=== PATIENT | female | born 2000 | race Caucasian/White ===

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

== ENCOUNTER 2018-02-26 13:54 | Emergency (ER) | payer OTHER ==
[~2018-02-26] VITALS: Ht 167.6 cm; Wt 86.2 kg
[2018-02-26 14:20] LABS: BILIRUBIN NEGATIVE (NEGATIVE); BLOOD NEGATIVE (NEGATIVE); CLARITY SL CLOUDY (CLEAR); COLOR YELLOW (YELLOW); GLUCOSE NEGATIVE (NEGATIVE); KETONE NEGATIVE (NEGATIVE); LEUKO ESTERASE 2+ (NEGATIVE); NITRITE NEGATIVE (NEGATIVE); SPECIFIC GRAVITY 1.025 (1.005-1.030); UROBILINOGEN 0.2 E.U./dl (0.2-1.0)
[2018-02-26 14:35] LABS: WBC 16-20 wbc/hpf (0-5)
[2018-02-26 14:36] LABS: BACTERIA 1+
[2018-02-26 14:49] LABS: BASO % 0.3 % (0.0-1.0); EOS # 0.1 10*3/uL (0.0-0.4); EOS % 0.7 % (1.0-4.0); HEMOGLOBIN 12.4 g/dl (12.0-16.0); LYMPH # 1.5 10*3/uL (1.3-4.4); LYMPH % 20.7 % (27.0-41.0); MEAN CORPUSCULAR HGB 28.8 pg (27.0-31.0); MEAN CORPUSCULAR HGB CONC 33.5 g/dl (33.0-37.0); MEAN PLATELET VOLUME 8.5 fl (9.6-12.3); MONO # 0.5 10*3/uL (0.1-1.0); MONO % 6.3 % (3.0-9.0); NEUT # 5.1 10*3/uL (2.3-7.9); NEUT % 71.7 % (47.0-73.0); PLATELET COUNT AUTOMATED 324 10*3/uL (130-400); RED CELL DISTRI WIDTH 12.9 % (0-14.5); WHITE BLOOD COUNT 7.1 10*3/uL (4.8-10.8)
[2018-02-26 15:01] LABS: INTERNATIONAL NORM RATIO 0.9 (2.0-3.5)
[2018-02-26 15:08] LABS: ALBUMIN 3.3 gm/dl (3.1-4.5); ALKALINE PHOSPHATASE 75 U/L (45-117); BUN 12 mg/dl (7-24); CHLORIDE 106 mmol/L (98-107); CREATININE 0.73 mg/dL (0.55-1.02); LIPASE 112 U/L (73-393); POTASSIUM 3.9 mmol/L (3.5-5.1); SGOT/AST 16 IU/L (3-35); SGPT/ALT 29 U/L (12-78); SODIUM 141 mmol/L (136-145); TOTAL PROTEIN 7.8 gm/dL (6.4-8.2)
[2018-02-26 15:10] LABS: TROPONIN I < 0.015 ng/ml (<0.045)
[2018-02-26 18:15] VITALS: BP 115/65
== END 2018-02-26 18:30 | disposition left against medical advice (07) ==
LOC: ED 13:54
PROVIDERS: Physician Assistant
DX: R07.9 Chest pain, unspecified (principal); K30 Functional dyspepsia; R11.10 Vomiting, unspecified; Z90.49 Acquired absence of other specified parts of digestive tract

== ENCOUNTER 2018-04-16 13:46 | Emergency (ER) | payer OTHER ==
[~2018-04-16] VITALS: Ht 167.6 cm; Wt 90.7 kg
[2018-04-16 13:47] VITALS: BP 105/72
[2018-04-16 14:13] LABS: BILIRUBIN 2+ (NEGATIVE); BLOOD TRACE-INTACT (NEGATIVE); CLARITY SL CLOUDY (CLEAR); COLOR YELLOW (YELLOW); GLUCOSE NEGATIVE (NEGATIVE); KETONE TRACE (NEGATIVE); LEUKO ESTERASE 2+ (NEGATIVE); NITRITE NEGATIVE (NEGATIVE); PH 6.5 (5.0-9.0)
[2018-04-16 14:15] LABS: BASO % 0.3 % (0.0-1.0); EOS % 0.5 % (1.0-4.0); HEMATOCRIT 40.2 % (37.0-47.0); HEMOGLOBIN 13.3 g/dl (12.0-16.0); LYMPH # 1.4 10*3/uL (1.3-4.4); LYMPH % 17.6 % (27.0-41.0); MEAN CELL VOLUME 86.6 fl (81.0-99.0); MEAN CORPUSCULAR HGB 28.7 pg (27.0-31.0); MEAN CORPUSCULAR HGB CONC 33.1 g/dl (33.0-37.0); MEAN PLATELET VOLUME 8.8 fl (9.6-12.3); MONO # 0.4 10*3/uL (0.1-1.0); MONO % 5.2 % (3.0-9.0); NEUT % 76.1 % (47.0-73.0); PLATELET COUNT AUTOMATED 338 10*3/uL (130-400); RED BLOOD COUNT 4.64 10*6/uL (4.10-5.10); RED CELL DISTRI WIDTH 13.2 % (0-14.5); WHITE BLOOD COUNT 7.8 10*3/uL (4.8-10.8)
[2018-04-16 14:27] LABS: ALBUMIN 3.3 gm/dl (3.1-4.5); ALKALINE PHOSPHATASE 116 U/L (45-117); BUN 11 mg/dl (7-24); CHLORIDE 103 mmol/L (98-107); CREATININE 0.83 mg/dL (0.55-1.02); LIPASE 104 U/L (73-393); POTASSIUM 3.9 mmol/L (3.5-5.1); SGOT/AST 282 IU/L (3-35); SGPT/ALT 135 U/L (12-78); SODIUM 137 mmol/L (136-145); TOTAL PROTEIN 7.9 gm/dL (6.4-8.2)
[2018-04-16 14:33] LABS: BACTERIA 1+
[2018-04-16 14:34] LABS: MUCOUS 2+
[2018-04-16] MEDS ORDERED: MACROBID100 M1 PO (15:52)
[2018-04-16] MEDS ORDERED: FLAGYL500 MG PO (15:52)
[2018-04-25] MEDS ORDERED: PERCOCET 5-3251 EACH PO (11:35)
[2018-05-15] MEDS ORDERED: TRAMADOL HCL50 MG PO (12:59)
[2018-05-15] MEDS ORDERED: HYOSCYAMINE0.125 MG PO (13:00)
[2018-05-15] MEDS ORDERED: OMEPRAZOLE20 M2 PO (13:02)
== END 2018-04-16 15:54 | disposition home or self-care (01) ==
LOC: ED 13:46
PROVIDERS: Nurse Practitioner Family
DX: A59.8 Trichomoniasis of other sites (principal); N39.0 Urinary tract infection, site not specified; Z90.49 Acquired absence of other specified parts of digestive tract

== ENCOUNTER 2018-04-18 23:37 | Inpatient (IN) | payer OTHER ==
[~2018-04-18] VITALS: Ht 167.6 cm; Wt 108.1 kg
--- NOTE | ~2018-04-18 | CON ---
[place], [place] REPORT OF CONSULTATION NAME: JANETTE BALDERRAMA UNIT #: [id number] ROOM: 517 DOCTOR: LANA SOLIS MD BIRTHDATE: [birth year] DOS: 04/19/2018 GASTROENDOSCOPIC CONSULTATION REPORT HISTORY OF PRESENT ILLNESS: This is a 18-year-old morbidly obese patient who has presented with chief complaint of abdominal pain. Apparently, she has had multiple visits to Emergency Room. She was sent home with antibiotic and she returns again because of abdominal pain. She had a CBC done. White blood cell was 7.8, H and H of 13 and 40, differential within normal limits. Urinalysis was mildly active, 1+ bacteria. Comprehensive metabolic panel, GFR greater than 60. Liver function test, minimal elevation of SGOT, SGPT at 280+ and 130+, normal alkaline phosphatase, normal bilirubin. She has lipase 104. Chest x-ray was normal, clear lungs. Urine cultures were normal. Monospot negative. CT scan of the abdomen has been done, choledocholithiasis could not be ruled out. She is status post cholecystectomy. Her lipase was greater than 18,000 plus. MRI of the abdomen shows intrahepatic and extrahepatic ductal dilation to 1.3 cm and no obvious calculi identified, acute pancreatitis was confirmed radiologically again. PAST MEDICAL HISTORY: Associated with recurrent pancreatitis and otherwise unremarkable. PAST SURGICAL HISTORY: Associated with broken femur, status post T and A, and status post cholecystectomy 2 years ago. This was done in [place]. SOCIAL HISTORY: Nonsmoker, nonalcohol consumer. FAMILY HISTORY: Noncontributory. ALLERGIES: Allergies to no known medications. MEDICATIONS: At home, anti- pills. REVIEW OF SYSTEMS: HEENT: Denies double vision or blurred vision. RESPIRATORY: Admits to shortness of breath. CARDIOVASCULAR: Denies chest pain. DIGESTIVE SYSTEM: Dyspepsia. PHYSICAL EXAMINATION: GENERAL: Obese patient with gesture of pain in bed, positioned in right lateral. HEENT: Head normocephalic, nontraumatic. Eyes, pupils round, reactive. Sclerae nonicteric. Conjunctivae pink. Mouth and buccal mucosa benign. NECK: Supple. No thyromegaly, no cervical lymphadenopathy. CHEST: Symmetric anatomy, equal expansion. No wheeze, no rhonchi. HEART: Normal sinus rhythm, no gallop, no murmur. ABDOMEN: Obese, soft. No hepato-organomegaly. Tender across the abdomen. Bowel sounds present. No Spence Deal's sign, no Joppa's sign. EXTREMITIES: No cyanosis, no pedal edema. [place], [place] REPORT OF CONSULTATION NAME: JANETTE BALDERRAMA UNIT #: [id number] ROOM: [facility] DOCTOR: LANA SOLIS MD BIRTHDATE: [birth year] NEUROLOGIC: Fully alert, oriented to time, place, person. Sensory, motor intact. Cranial nerves 2-12 intact. IMPRESSION: Recurrent pancreatitis with presence of calcification in the head of the pancreas, dilation of intrahepatic and extrahepatic ducts, status post cholecystectomy could be partially physiologic, post-cholecystectomy and could be having synchronous pathology at the papillary level, i.e., past choledocholithiasis. Etiology of concern so far can be past choledocholithiasis. PLAN AND DISCUSSION: I am still concerned if she has other etiologies to contribute, i.e. we are going to do a serum triglyceride level on her and if negative, perhaps she deserves genetic studies. Of interest is that there is no evidence of saponification and calcium level is normal. Amylase was 3000+. Lipase has dropped and is recorded as much as 49,000 plus. Workup in progress, hydration, pain management, n.p.o., serum triglyceride level and reassessment. LANA SOLIS MD CM:CONSTR:REPORT OF CONSULTATION 42 04/20/18 1208 interface
--- NOTE | ~2018-04-18 | PR ---
[place], [place] PROGRESS NOTE NAME: JANETTE BALDERRAMA UNIT #: [id number] ROOM: [facility] DOCTOR: LANA SOLIS MD BIRTHDATE: [birth year] CM:PNTRANS [id number] LANA SOLIS MD 04/22/18 1206 LAKISHA PABLO [email or web address]
--- NOTE | ~2018-04-18 | PR ---
[place], [place] PROGRESS NOTE NAME: JANETTE BALDERRAMA UNIT #: [id number] ROOM: 517 DOCTOR: LANA SOLIS MD BIRTHDATE: [birth year] DOS: 04/19/2018 GASTROENDOSCOPIC REPORT HISTORY OF PRESENT ILLNESS: The patient has presented with abnormal liver function test, pancreatitis, which suddenly was associated with extreme elevation of lipase 249,000 and today 216,000. The patient clinically feels better. Urine culture was no growth associated with it. The glucose was 89, phosphorus 2.1, which is going to be addressed. Triglycerides was a 39. Amylase and lipase 1716 plus. INR 1.0. Her MRI does not show any specific choledocholithiasis, pancreatic calcification in the head was noticed. REVIEW OF SYSTEMS: HEENT: Denies double vision, blurred vision. RESPIRATORY: Denies shortness of breath. CARDIOVASCULAR: No chest pain. DIGESTIVE SYSTEM: Complaining of abdominal pain, abdominal distress. PHYSICAL EXAMINATION: GENERAL: Obese patient. HEENT: Within normal limit. NECK: Supple, no thyromegaly. CHEST: Symmetric anatomy, equal expansion. No wheeze, no rhonchi. HEART: Normal sinus rhythm, no gallop, no murmur. ABDOMEN: Soft. No hepato-organomegaly, obese. Bowel sounds present. No pulsatile mass. EXTREMITIES: No cyanosis, no pedal edema. NEUROLOGIC: Alert, oriented to time, place, person. IMPRESSION: Normal triglyceride level improving on sudden elevation of amylase and lipase, which means most likely passage of stone from common duct with a sequelae of insult of pancreatic duct organ status post cholecystectomy. PLAN AND DISCUSSION: We are going to continue with IV hydration, phosphorus supplementation, electrolyte balancing, observation, clinical reevaluation. [place], [place] PROGRESS NOTE NAME: JANETTE BALDERRAMA UNIT #: [id number] ROOM: 517 DOCTOR: LANA SOLIS MD BIRTHDATE: [birth year] LANA SOLIS MD CM:PNTRANS 10 16 LANA SOLIS MD 04/22/18 1204 interface
[~2018-04-18 23:37] MED LIST changes: +FLAGYL500 MG PO
[2018-04-18 23:38] VITALS: BP 148/51
[2018-04-19] VITALS (7 sets, daily range): BP systolic 118–145; BP diastolic 63–93
[2018-04-19 00:10] LABS: BASO % 0.1 % (0.0-1.0); EOS % 0.4 % (1.0-4.0); HEMATOCRIT 42.8 % (37.0-47.0); HEMOGLOBIN 13.9 g/dl (12.0-16.0); LYMPH # 1.3 10*3/uL (1.3-4.4); LYMPH % 14.1 % (27.0-41.0); MEAN CELL VOLUME 87.3 fl (81.0-99.0); MEAN CORPUSCULAR HGB 28.4 pg (27.0-31.0); MEAN CORPUSCULAR HGB CONC 32.5 g/dl (33.0-37.0); MEAN PLATELET VOLUME 8.7 fl (9.6-12.3); MONO # 0.4 10*3/uL (0.1-1.0); MONO % 4.8 % (3.0-9.0); NEUT # 7.2 10*3/uL (2.3-7.9); NEUT % 80.3 % (47.0-73.0); PLATELET COUNT AUTOMATED 322 10*3/uL (130-400); RED CELL DISTRI WIDTH 13.2 % (0-14.5); WHITE BLOOD COUNT 8.9 10*3/uL (4.8-10.8)
[2018-04-19 00:29] LABS: ALBUMIN 3.6 gm/dl (3.1-4.5); ALKALINE PHOSPHATASE 211 U/L (45-117); BUN 9 mg/dl (7-24); CHLORIDE 105 mmol/L (98-107); CREATININE 0.82 mg/dL (0.55-1.02); POTASSIUM 3.7 mmol/L (3.5-5.1); SGOT/AST 346 IU/L (3-35); SGPT/ALT 231 U/L (12-78); SODIUM 138 mmol/L (136-145); TOTAL PROTEIN 7.9 gm/dL (6.4-8.2)
--- NOTE | 2018-04-19 00:43 | NUR ---
PT PROVIDED A URINE CUP. STATES SHE DOES NOT HAVE THE URGE TO VOID AT THIS TIME
[2018-04-19 01:08] LABS: LIPASE 49560 U/L (73-393)
--- NOTE | 2018-04-19 01:21 | NUR ---
AMYLASE 3,676, THEODORA DOBBINS NP AWARE
--- NOTE | 2018-04-19 02:04 | NUR ---
PATIENT STATES THAT SHE STILL DOES NOT HAVE AN URGE TO VOID FOR A SAMPLE
--- NOTE | 2018-04-19 02:20 | NUR ---
Time: 219 A 18 year old FEMALE admitted to 5E under services of VENU KIMBALL DO. Pt. arrived via wheel chair from ER. Chief complaint: CAME IN WITH C/O ABDOMINAL PAIN THAT HAS BEEN RECURRENT OVER LAST FEW DAYS.. WALTER OWUSU
--- NOTE | 2018-04-19 03:00 | NUR ---
PATIENT UNSURE OF HOME MEDS. STATED SHE WAS IN TOO MUCH PAIN TO RECALL.
--- NOTE | 2018-04-19 03:50 | NUR ---
PATIENT MEDICATED WITH 12.5 PHENERGAN AND 2 MG MORPHINE IV PER PRN ORDER FOR C/O NAUSEA WITH EMESIS AND PAIN. RATED PAIN A 9/10 WITH 10 BEING THE WORST. SEE EMAR. REINFORCED USE OF CALL LIGHT
--- NOTE | 2018-04-19 06:05 | NUR ---
PATIENT MEDICATED SLOWLY WITH MORPHINE 2 MG IV PER PRN ORDER FOR C/O ABDOMINAL PAIN. SEE EMAR. REINFORCED USE OF CALL LIGHT.
--- NOTE | 2018-04-19 06:15 | NUR ---
DR. SOLIS CALLED PER ORDER . NOTIFIED DR. SOLIS OF CONSULT.
--- NOTE | 2018-04-19 06:56 | NUR ---
PATIENT RESTING QUIETLY. NO FURTHER C/O VOICED.
--- NOTE | 2018-04-19 07:40 | NUR ---
Spoke with Dr. Hardy regarding pt statements that she is still in pain after having morphine at 6 am. Pt states that morphine is really not effective for pain. Dr. Hardy states he will change to dilaudid.
[2018-04-19 07:43] LABS: BILIRUBIN 2+ (NEGATIVE); BLOOD 1+ (NEGATIVE); CLARITY CLOUDY (CLEAR); COLOR YELLOW (YELLOW); GLUCOSE NEGATIVE (NEGATIVE); KETONE 1+ (NEGATIVE); LEUKO ESTERASE 2+ (NEGATIVE); NITRITE NEGATIVE (NEGATIVE); SPECIFIC GRAVITY 1.025 (1.005-1.030)
--- NOTE | 2018-04-19 07:55 | NUR ---
Medicated with dilaudid 1 mg iv per prn order for c/o abdominal pain. Pt states pain across abdomen just below breasts. Notified of new orders for pain medication.
[2018-04-19 08:03] LABS: EPITHELIAL CELLS 21-30; MUCOUS 2+; WBC 21-30 wbc/hpf (0-5)
--- NOTE | 2018-04-19 08:20 | NUR ---
Reviewed MRI paper with pt and explained order for MRCP today.
--- NOTE | 2018-04-19 09:15 | NUR ---
Taken off floor to MRI.
--- NOTE | 2018-04-19 09:40 | NUR ---
MRI brought pt back to floor. Pt had stated to them that she was unable to lay flat for the time she needed to due to intense pain. building maintenance technician states that they are now having routine maintence done on MRI and it will not be completed until after 12 pm. States they have a scheduled MRI at 1 pm so their plan is to come back for pt around 2 pm.
--- NOTE | 2018-04-19 10:49 | NUR ---
Medicated with dilaudid 2 mg iv per prn order for complaints of abdominal pain as prior. Pt rates pain at this time as 8/10. While medicating pt she had a small emesis.
--- NOTE | 2018-04-19 10:54 | NUR ---
Medicated with zofran iv per prn order for N/V.
--- NOTE | 2018-04-19 11:20 | NUR ---
Pt states she is already experiencing relief with dilaudid 2 mg. States zofran effective for nausea.
--- NOTE | 2018-04-19 13:57 | NUR ---
Pt medicated with dilaudid 2 mg iv states pain level is 6/10. States she is feeling better. Transported to MRI at this time for MRCP.
--- NOTE | 2018-04-19 14:36 | NUR ---
Returned to floor from having MRCP. States she is much more comfortable. Denies nausea. States she is having hiccups.
--- NOTE | 2018-04-19 14:47 | NUR ---
Spoke with Quintin Manzano RN in OR. States Dr. Mak is in surgery right now. I notified Quintin that this pt had MRCP and results are available in computer for Dr. Mak to review. Quintin states he will notify
--- NOTE | 2018-04-19 14:55 | NUR ---
Quintin Manzano RN to floor, states he printed MRCP report and handed it to Dr. Mak.
--- NOTE | 2018-04-19 17:47 | NUR ---
States that dilaudid and zofran given earlier were effective. See emar.
--- NOTE | 2018-04-19 19:12 | NUR ---
Pt resting in bed with lights out. Declined bedside report.
--- NOTE | 2018-04-19 19:47 | NUR ---
DR. SOLIS IN TO SEE PATIENT, SEE NEW ORDERS.
--- NOTE | 2018-04-19 20:13 | NUR ---
PATIENT IS AAOX3 RESTING IN BED WITH EASY AND REGULAR RESPERS ON ROOM AIR. ASSESSMENT IS COMPLETE WITH NO S/S OF DISTRESS NOTED AT THIS TIME. PATIENT DOES C/O A BURING PAIN UNDERNEATH BREASTS RATING A 9/10. MEDICATED WITH PRN DILAUDID ORDERED AT THIS TIME. IV FLUIDS INFUSING PER ORDER AND PATIENT IS TOLERATING WELL. BED IS LOW, LOCKED, AND CALL LIGHT IS WITHIN REACH. WILL MONITOR EFFECT OF PAIN MEDICATION.
--- NOTE | 2018-04-19 21:00 | NUR ---
PRN MEDICATIONS SEEM EFFECTIVE, PATIENT IS SLEEPING WITH EASY AND REGULAR RESPERS ON ROOM AIR. CALL LIGHT IS WITHIN REACH.
[2018-04-20] VITALS: BP 107/61
--- NOTE | 2018-04-20 05:59 | NUR ---
MEDICATED WITH ZOFRAN FOR C/O NAUSEA.
[2018-04-20 06:59] LABS: BASO % 0.1 % (0.0-1.0); EOS % 0.1 % (1.0-4.0); HEMATOCRIT 40.8 % (37.0-47.0); HEMOGLOBIN 13.2 g/dl (12.0-16.0); LYMPH # 1.2 10*3/uL (1.3-4.4); LYMPH % 14.4 % (27.0-41.0); MEAN CELL VOLUME 89.3 fl (81.0-99.0); MEAN CORPUSCULAR HGB 28.9 pg (27.0-31.0); MEAN CORPUSCULAR HGB CONC 32.4 g/dl (33.0-37.0); MONO # 0.5 10*3/uL (0.1-1.0); MONO % 5.6 % (3.0-9.0); NEUT # 6.5 10*3/uL (2.3-7.9); NEUT % 79.4 % (47.0-73.0); PLATELET COUNT AUTOMATED 274 10*3/uL (130-400); RED BLOOD COUNT 4.57 10*6/uL (4.10-5.10); RED CELL DISTRI WIDTH 13.8 % (0-14.5); WHITE BLOOD COUNT 8.2 10*3/uL (4.8-10.8)
[2018-04-20 07:09] LABS: BUN 7 mg/dl (7-24); CHLORIDE 107 mmol/L (98-107); CHOLESTEROL 192 mg/dL (<200); CREATININE 0.67 mg/dL (0.55-1.02); PHOSPHOROUS 2.1 mg/dL (2.5-4.9); POTASSIUM 3.5 mmol/L (3.5-5.1); SODIUM 141 mmol/L (136-145); TRIGLYCERIDES 139 mg/dl (<150); VLDL CHOLESTEROL 28 mg/dL (6-40)
--- NOTE | 2018-04-20 07:10 | NUR ---
PT ASLEEP IN BED. REPORT RECIEVED FROM JASON LAGUNA. CALL LIGHT WITHIN REACH, WILL CONTINUE TO MONITOR.
[2018-04-20 07:22] LABS: FREE T4 1.24 ng/dl (0.76-1.46); HDL CHOLESTEROL 70 mg/dl (40-60); LDL CHOLESTEROL 94 mg/dL (9-159)
[2018-04-20 07:30] LABS: ACT PARTIAL THROMBO TIME 22.7 SECONDS (20.8-31.5)
[2018-04-20 07:59] LABS: LIPASE 16587 U/L (73-393)
[2018-04-20 08:00] VITALS: BP 120/57
--- NOTE | 2018-04-20 08:01 | NUR ---
24 HR CHART CHECK COMPLETE
[2018-04-20 08:07] LABS: VITAMIN D, 25-HYDROXY 9.9 ng/mL (30-100)
--- NOTE | 2018-04-20 08:28 | NUR ---
PT ADMINISTERED PRN DILAUDID FOR ABDOMINAL PAIN RATED AN 8/10. WILL CONTINUE TO MONITOR.
--- NOTE | 2018-04-20 09:14 | NUR ---
PT RESTING COMFORTABLY IN BED WITH NO SIGNS OR SYMPTOMS OF DISTRESS. PRN MEDICATION EFFECTIVE.
--- NOTE | 2018-04-20 10:17 | NUR ---
24 HR CHART CHECK COMPLETE
[2018-04-20 12:00] VITALS: BP 107/53
[2018-04-20 16:00] VITALS: BP 118/67
--- NOTE | 2018-04-20 17:44 | NUR ---
DILAUDID 2MG IV GIVEN PER PATIENT REQUEST FOR ABDOMINAL PAIN RATING A 7/10.
--- NOTE | 2018-04-20 18:15 | NUR ---
CALLED DR HEATH AND REQUESTED ICE CHIPS FOR PT. ORDER RECEIVED
--- NOTE | 2018-04-20 19:05 | NUR ---
BEDSIDE REPORT OBTAINED BY JOHNNY-JASON. PATIENT IS AWAKE AND ALERT, VOICED NO COMPLAINTS AT THIS TIME. NO DISTRESS NOTED, RESP ARE ERND ON ROOM AIR. BED IS LOCKED IN LOWEST POSITION, CALL LIGHT LEFT WITHIN REACH.
[2018-04-20 20:00] VITALS: BP 114/55
--- NOTE | 2018-04-20 20:50 | NUR ---
PATIENT MEDICATED WITH DILAUDID AND ZOFRAN FOR C/O UPPER QUADRANT PAIN 11/02. TREATED WITH ZOFRAN D/T CONSTANT NAUSEA AFTER TAKING PAIN MEDICATION. WILL MONITOR.
--- NOTE | 2018-04-20 21:50 | NUR ---
DILAUDID EFFECTIVE FOR UPPER QUADRANT PAIN. PATIENT IS NOT NAUSEA AT THIS TIME.
--- NOTE | 2018-04-20 23:51 | NUR ---
PATIENT MEDICATED WITH DILAUDID FOR BL UPPER QUADRANT PAIN 11/02. WILL MONITOR.
--- NOTE | 2018-04-20 23:57 | NUR ---
PATIENT MEDICATED WITH PHENERGAN FOR C/O NAUSEA. WILL MONITOR.
[2018-04-21] VITALS: BP 113/57
--- NOTE | 2018-04-21 00:51 | NUR ---
DILAUDID EFFECTIVE FOR PAIN.
--- NOTE | 2018-04-21 00:57 | NUR ---
PHENERGAN EFFECTIVE FOR NAUSEA.
--- NOTE | 2018-04-21 03:02 | NUR ---
PATIENT MEDICATED WITH DILAUDID FROM C/O 11/02 BL UPPER QUADRANT PAIN. WILL MONITOR
--- NOTE | 2018-04-21 04:00 | NUR ---
SLEEPING. CALL LIGHT WITHIN REACH.
--- NOTE | 2018-04-21 06:08 | NUR ---
PATIENT MEDICATED WITH DILAUDID AND ZOFRAN FO C/O 8/10 BL UPPER QUADRANT PAIN AND NAUSEA. WILL MONITOR.
[2018-04-21 06:34] LABS: BASO % 0.2 % (0.0-1.0); EOS % 0.2 % (1.0-4.0); HEMOGLOBIN 11.2 g/dl (12.0-16.0); LYMPH # 1.2 10*3/uL (1.3-4.4); LYMPH % 13.4 % (27.0-41.0); MEAN CELL VOLUME 89.6 fl (81.0-99.0); MEAN CORPUSCULAR HGB 29.8 pg (27.0-31.0); MEAN CORPUSCULAR HGB CONC 33.2 g/dl (33.0-37.0); MONO # 0.7 10*3/uL (0.1-1.0); NEUT # 6.8 10*3/uL (2.3-7.9); NEUT % 77.6 % (47.0-73.0); PLATELET COUNT AUTOMATED 216 10*3/uL (130-400); RED BLOOD COUNT 3.76 10*6/uL (4.10-5.10); RED CELL DISTRI WIDTH 13.5 % (0-14.5); WHITE BLOOD COUNT 8.8 10*3/uL (4.8-10.8)
[2018-04-21 06:35] LABS: ALBUMIN 2.2 gm/dl (3.1-4.5); BUN 5 mg/dl (7-24); CHLORIDE 104 mmol/L (98-107); POTASSIUM 3.1 mmol/L (3.5-5.1); SODIUM 138 mmol/L (136-145)
[2018-04-21 06:36] LABS: HEMATOCRIT 33.7 % (37.0-47.0)
[2018-04-21 06:41] LABS: ALKALINE PHOSPHATASE 136 U/L (45-117); PHOSPHOROUS 1.5 mg/dL (2.5-4.9); SGOT/AST 63 IU/L (3-35); SGPT/ALT 128 U/L (12-78); TOTAL PROTEIN 5.6 gm/dL (6.4-8.2)
[2018-04-21 06:53] LABS: LIPASE 5031 U/L (73-393)
[2018-04-21 08:00] VITALS: BP 99/61
--- NOTE | 2018-04-21 08:51 | NUR ---
DR. KARAN HEATH NOTIFIED REGARDING LABS.
--- NOTE | 2018-04-21 09:14 | NUR ---
PT REQUESTED IV DILAUDID AND IV PHENERGAN PER PRN ORDER FOR C/O ABD PAIN AND NAUSEA. RATES PAIN 8/10. PT ALSO REQUESTING ADVANCING HER DIET. WILL MONITOR EFFECTIVENESS.
--- NOTE | 2018-04-21 10:00 | NUR ---
EARLIER MEDS RELIEVING PAIN AND NAUSEA. WILL CONTINUE TO MONITOR.
[2018-04-21 12:00] VITALS: BP 123/58
--- NOTE | 2018-04-21 12:13 | NUR ---
PT REQUESTED IV DILAUDID AND IV ZOFRAN PER PRN ORDER FOR C/O ABD PAIN AND NAUSEA. WILL MONITOR EFFECTIVENESS.
--- NOTE | 2018-04-21 15:16 | NUR ---
PT MEDICATED WITH DILASUDID FOR PT C/O OF ABDOMINAL PAIN. 11/02 WILL MONITOR.
[2018-04-21 16:00] VITALS: BP 109/62
--- NOTE | 2018-04-21 16:43 | NUR ---
DR.A HEATH NOTIFIED REGARDING TACHYCARDIA AT REST. HR 130-140'S. NEW ORDERS TO BE ENTERED PER PHYSICIAN. PT ASYMPTOMATIC.
--- NOTE | 2018-04-21 17:00 | NUR ---
IV LOPRESSOR GIVEN SLOWLY AT THIS TIME PER ORDER. WILL MONITOR PATIENTS HR.
--- NOTE | 2018-04-21 17:05 | NUR ---
HR COMING DOWN. HR NOW 108-115. WILL CONTINUE TO MONITOR. VSS. PT REMAINS ASYMPTOMATIC.
--- NOTE | 2018-04-21 18:39 | NUR ---
PT MEDICATED WITH IV DILAUDID SLOWLY PER PRN ORDER FOR C/O ABD PAIN. RATES PAIN 8/10. ALSO MEDICATED WITH IV ZOFRAN PER PRN ORDER FOR C/O NAUSEA. HR 108. WILL MONITOR EFFECTIVENESS.
[2018-04-21 20:00] VITALS: BP 123/75
--- NOTE | 2018-04-21 20:30 | NUR ---
WAS NOTIFIED BY PA, THAT HEART RATE IS 160. NOTIFIED DR. THOMPSON, NEW ORDER TO PLACE ON [address] AND ADD 40 PO KDUR.
--- NOTE | 2018-04-21 21:30 | NUR ---
PATIENT HAVING AB PAIN, RATES 8/10. ALSO HAVING NAUSEA. DILAUDID AND ZOFRAN GIVEN. WILL MONITOR AND REASSESS.
--- NOTE | 2018-04-21 22:37 | NUR ---
24 HR chart check completed.
--- NOTE | 2018-04-21 22:51 | NUR ---
PATIENT STATES THE PAIN MEDS WORK FOR A SHORT TIME. ZOFRAN EFFECTIVE.
[2018-04-22] VITALS: BP 125/63
--- NOTE | 2018-04-22 01:04 | NUR ---
DILAUDID IV GIVEN PER PT REQUEST FOR C/O 9/10 ABDOMINAL PAIN AND PHENERGEN GIVEN FOR C/O NAUSEA. WILL DOCUMENT EFFECTIVENESS.
--- NOTE | 2018-04-22 01:30 | NUR ---
PT STATES PAIN IMPROVED. NOW RATING 4/10 ON PAIN SCALE.
--- NOTE | 2018-04-22 03:38 | NUR ---
DILAUDID GIVEN PER PT REQUEST PER ORDERS 2MG IV FOR C/O LT SIDE ABDOMINAL PAIN RATED 8/10. ALDO PRATER
--- NOTE | 2018-04-22 04:40 | NUR ---
PT STATES MEDICATION EFFECTIVE FOR PAIN, PT DENIES HAVING NAUSEA AND STATES SHE THINKS THE NAUSEOUS FEELING IS FROM NOT EATING. WILL CONT TO MONITOR.
[2018-04-22 06:36] LABS: BASO % 0.2 % (0.0-1.0); EOS # 0.1 10*3/uL (0.0-0.4); EOS % 0.8 % (1.0-4.0); HEMATOCRIT 33.9 % (37.0-47.0); LYMPH # 1.5 10*3/uL (1.3-4.4); LYMPH % 17.8 % (27.0-41.0); MEAN CELL VOLUME 88.5 fl (81.0-99.0); MEAN CORPUSCULAR HGB 28.7 pg (27.0-31.0); MEAN CORPUSCULAR HGB CONC 32.4 g/dl (33.0-37.0); MEAN PLATELET VOLUME 8.7 fl (9.6-12.3); MONO # 0.6 10*3/uL (0.1-1.0); MONO % 7.3 % (3.0-9.0); NEUT # 6.1 10*3/uL (2.3-7.9); NEUT % 73.5 % (47.0-73.0); PLATELET COUNT AUTOMATED 228 10*3/uL (130-400); RED BLOOD COUNT 3.83 10*6/uL (4.10-5.10); RED CELL DISTRI WIDTH 13.4 % (0-14.5); WHITE BLOOD COUNT 8.4 10*3/uL (4.8-10.8)
--- NOTE | 2018-04-22 06:47 | NUR ---
SPOKE TO AT THIS TIME. QUESTIONING AM LABS. INSTRUCTED TO CALL THIS AM WHEN LABS ARE BACK.
[2018-04-22 06:55] LABS: ALBUMIN 2.2 gm/dl (3.1-4.5); BUN 2 mg/dl (7-24); CHLORIDE 104 mmol/L (98-107); CREATININE 0.66 mg/dL (0.55-1.02); PHOSPHOROUS 1.8 mg/dL (2.5-4.9); POTASSIUM 3.6 mmol/L (3.5-5.1); SGOT/AST 24 IU/L (3-35); SGPT/ALT 88 U/L (12-78); SODIUM 137 mmol/L (136-145)
[2018-04-22 06:56] LABS: ALKALINE PHOSPHATASE 117 U/L (45-117); TOTAL PROTEIN 5.8 gm/dL (6.4-8.2)
--- NOTE | 2018-04-22 09:00 | NUR ---
Precision Dyer in to talk to patient. Patient states lives at home with her pap. There are 4 steps in the home. Physician: Dr. Santana [facility]acy: [facility] Home health services: none Patient's level of ADLs: INDEPENDENT Patient has working utilities: yes DME: none Follow-up physician's appointment after d/c: will be made by the hospitalist nurse director upon discharge Does patient want to access PORTAL?: no Discharge plan discussed with patient. She lives at home with her pap. She is independent in her ADLs and ambulation. Discussed home health care services and she denies any home needs at this time. When medically stable she will be discharged to home. DANNY SANTANA
[2018-04-22 11:53] VITALS: BP 92/52
--- NOTE | 2018-04-22 12:53 | NUR ---
PATIENT RATES ABDOMINAL PAIN AT A 9. PRN DILAUDID WAS GIVEN AT THIS TIME. PATIEN ALSO COMPLAINS OF NAUSEA. PRN ZOFRAN GIVEN. WILL MONITOR FOR EFFECTIVENESS.
--- NOTE | 2018-04-22 14:00 | NUR ---
PATIENT STATES PRN MEDICATIONS WERE EFFECTIVE.
[2018-04-22 16:00] VITALS: BP 117/67
--- NOTE | 2018-04-22 16:03 | NUR ---
PATIENT STATES ABDOMINAL PAIN IS RATED AT AN 8. PRN DILAUDID [id number] AND RECIEVED. PATIENT STATES SHE IS EXPERIENCING NAUSEA, PRN PHENERGAN ADMINISTERED. WILL MONITOR FOR EFFECTIVENESS.
--- NOTE | 2018-04-22 17:00 | NUR ---
PATIENT STATES RELIEF WITH PREVIOUS PRN MEDICATIONS.
--- NOTE | 2018-04-22 18:57 | NUR ---
PATIENT RATED ABDOMINAL PAIN 9. PATIENT REQUESTED AND RECIEVED PRN DILAUDID AND ZOFRAN FOR NAUSEA. WILL MONITOR FOR EFFECTIVENESS.
[2018-04-22 20:00] VITALS: BP 108/65
--- NOTE | 2018-04-22 20:22 | NUR ---
IV discontinued. Site asymptomatic. Pressure applied. Sterile dressing applied. LES LIVE
--- NOTE | 2018-04-22 20:23 | NUR ---
IV started right forearm with #22 protective cath after 1 attempts. Site prepped with Chloroprep. Sterile dressing applied. Patient tolerated procedure well. IV infusing at 150 cc/hr. LES LIVE
--- NOTE | 2018-04-22 22:00 | NUR ---
DILDUDID GIVEN PER PT REQUEST FOR PAIN RATED 7/10. PHENERGEN PROVIDED PER REQUEST FOR NAUSEA.
--- NOTE | 2018-04-22 23:01 | NUR ---
DILAUDID EFFECTIVE. PT RESTING.
[2018-04-23] VITALS: BP 97/55
--- NOTE | 2018-04-23 01:50 | NUR ---
PATIENTS HR UP TO 150'S PER MONITOR WHILE PATIENT AMBULATING TO RR. DR ANGK AT DESK AND NOTIFIED. ALSO NOTIFIED PATIENT IRRITABLE DUE TO BP TOO LOW FOR PAIN MEDICATION. DR LAKHANI TO HOLD PAIN MEDS.
[2018-04-23 03:21] VITALS: BP 110/72
--- NOTE | 2018-04-23 03:24 | NUR ---
DR GARCIA CALLED WITH UPDATED BP 110/72, STATES OK TO GIVE DILAUDID.
--- NOTE | 2018-04-23 03:30 | NUR ---
DILAUDID GIVEN AT THIS TIME PER PT REQUEST FOR C/O LT SIDE ABD PAIN THAT RADIATES TO BACK. ALDO CHAVEZ.
--- NOTE | 2018-04-23 04:00 | NUR ---
MEDICATION EFFECTIVE FOR PAIN
--- NOTE | 2018-04-23 06:50 | NUR ---
PATIENT GIVEN DILAUDID FOR PAIN. DENIES NEED FOR NAUSEA MEDICINES.
[2018-04-23 06:54] LABS: ALBUMIN 2.1 gm/dl (3.1-4.5); CHLORIDE 105 mmol/L (98-107); CREATININE 0.56 mg/dL (0.55-1.02); LIPASE 816 U/L (73-393); POTASSIUM 3.4 mmol/L (3.5-5.1); SGOT/AST 15 IU/L (3-35); SGPT/ALT 62 U/L (12-78); SODIUM 139 mmol/L (136-145); TOTAL PROTEIN 5.6 gm/dL (6.4-8.2)
[2018-04-23 06:55] LABS: ALKALINE PHOSPHATASE 98 U/L (45-117)
[2018-04-23 07:20] LABS: BUN 1 mg/dl (7-24)
[2018-04-23 08:00] VITALS: BP 104/55
--- NOTE | 2018-04-23 09:00 | NUR ---
Deputy Chief Executive in to see patient. No new needs or request at this time. She denies any home needs. When medically stable she will be discharged to home.
--- NOTE | 2018-04-23 09:49 | NUR ---
PRN DILAUDID GIVEN FOR BACK PAIN RATED 8/10. CALL LIGHT IN REACH. IVF GOING. VSS.
--- NOTE | 2018-04-23 10:36 | NUR ---
PER PT, PAIN IS NOW RATED 3/10. CALL LIGHT IN REACH. DILAUDID WAS EFFECTIVE FOR PAIN.
[2018-04-23 12:00] VITALS: BP 101/78
--- NOTE | 2018-04-23 13:27 | NUR ---
DILAUDID GIVEN FOR PAIN RATED 7/10. CALL LIGHT IN REACH. VSS.
--- NOTE | 2018-04-23 14:02 | NUR ---
PER PT, DILAUDID WAS EFFECTIVE FOR PAIN. PAIN RATED 2/10. CALL LIGHT IN REACH. IVF GOING. VSS.
[2018-04-23 16:00] VITALS: BP 108/60
--- NOTE | 2018-04-23 16:10 | NUR ---
PER PT, BACK/ABD PAIN IS RATED 5-6/10. CALL LIGHT IN REACH. PERCOCET GIVEN. PAIN MANAGEMENT DISCUSSED. IVF GOING.
--- NOTE | 2018-04-23 18:01 | NUR ---
PER PT. PERCOCET WAS EFFECTIVE FOR PAIN. PAIN RATED 1/10. CALL LIGHT IN REACH.
[2018-04-23 20:00] VITALS: BP 128/69
--- NOTE | 2018-04-23 20:00 | NUR ---
AAOX3 RESTING IN BED. SKIN WARM & DRY. IV FLUIDS INFUSING INTO RIGHT FOREARM WITHOUT DIFFICULTY; SITE ASYMPTOMATIC. LUNGS DIMINISHED BILATERALLY WITH NO COUGH NOTED. PT. C/O LEFT SIDED PAIN & LOWER BELLY PAIN; MEDICATED WITH DILAUDID FOR PAIN RATED AN 8/10. CALL LIGHT WITHIN REACH.
--- NOTE | 2018-04-23 20:58 | NUR ---
VOICES NO C/O PAIN AT THIS TIME. DILAUDID GIVEN EARLIER APPARENTLY EFFECTIVE.
--- NOTE | 2018-04-23 22:30 | NUR ---
MEDICATED WITH PERCOCET FOR C/O LEFT SIDE PAIN & BELLY P AIN RATED A 7/10. ALSO MEDICATED WITH ZOFRAN FOR C/O NAUSEA. IV FLUIDS CONTINUE TO INFUSE WITHOUT DIFFICULTY. CALL LIGHT WITHIN REACH.
[2018-04-24] VITALS: BP 102/61
--- NOTE | 2018-04-24 01:30 | NUR ---
MEDICATED WITH DILAUDID SLOW IV PUSH FOR C/O ABDOMINAL PAIN RATED AN 8/10.
--- NOTE | 2018-04-24 02:30 | NUR ---
RESTING IN BED WITH EYES CLOSED; PAIN MEDICATION APPARENTLY EFFECTIVE.
--- NOTE | 2018-04-24 05:30 | NUR ---
IV started left wrist with #2 protective cath after attempts. Site prepped with Chloroprep. Sterile dressing applied. Patient tolerated procedure well. IV infusing at cc/hr. ELISEO COELLO
--- NOTE | 2018-04-24 05:35 | NUR ---
MEDICATED WITH DILAUDID SLOW IV PUSH FOR C/O ABDOMINAL PAIN RATED A 7/10.
--- NOTE | 2018-04-24 06:50 | NUR ---
RESTING IN BED WITH EYES CLOSED; DILAUDID GIVEN EARLIER APPARENTLY EFFECTIVE. CALL LIGHT WITHIN REACH.
[2018-04-24 07:03] LABS: BASO % 0.2 % (0.0-1.0); EOS # 0.2 10*3/uL (0.0-0.4); EOS % 2.8 % (1.0-4.0); HEMATOCRIT 33.1 % (37.0-47.0); HEMOGLOBIN 10.6 g/dl (12.0-16.0); LYMPH # 1.6 10*3/uL (1.3-4.4); LYMPH % 25.6 % (27.0-41.0); MEAN CELL VOLUME 88.3 fl (81.0-99.0); MEAN CORPUSCULAR HGB 28.3 pg (27.0-31.0); MEAN PLATELET VOLUME 8.7 fl (9.6-12.3); MONO # 0.5 10*3/uL (0.1-1.0); MONO % 7.5 % (3.0-9.0); NEUT % 63.3 % (47.0-73.0); PLATELET COUNT AUTOMATED 304 10*3/uL (130-400); RED BLOOD COUNT 3.75 10*6/uL (4.10-5.10); WHITE BLOOD COUNT 6.4 10*3/uL (4.8-10.8)
[2018-04-24 07:14] LABS: ALBUMIN 2.3 gm/dl (3.1-4.5); ALKALINE PHOSPHATASE 103 U/L (45-117); BUN 4 mg/dl (7-24); CHLORIDE 107 mmol/L (98-107); CREATININE 0.54 mg/dL (0.55-1.02); POTASSIUM 3.5 mmol/L (3.5-5.1); SGOT/AST 11 IU/L (3-35); SGPT/ALT 51 U/L (12-78); SODIUM 143 mmol/L (136-145); TOTAL PROTEIN 6.2 gm/dL (6.4-8.2)
[2018-04-24 08:00] VITALS: BP 136/80
--- NOTE | 2018-04-24 08:35 | NUR ---
PT RESTING IN BED. RESP-EASY AND REGULAR. NO SIGNS OF DISTRESS NOTED. IVF INFUSING WITH NO PROBLEM. C/O ABDOMINAL PAIN AND BILATERAL SIDE ABD PAIN, RATES PAIN 8 ON PAIN SCALE 0-10. MEDICATED WITH DILAUDID IV PER PRN ORDER, SEE EMAR. CALL LIGHT IN REACH. SEE SHIFT ASSESSMENT.
--- NOTE | 2018-04-24 09:30 | NUR ---
RESTING IN BED. STATES PAIN MEDICATION HELPS. CALL LIGHT IN REACH.
--- NOTE | 2018-04-24 11:00 | NUR ---
RESTING IN BED ON LEFT SIDE. RESP-EASY AND REGULAR. IVF INFUSING WITH NO PROBLEM. NO C/O AT THIS TIME. CALL LIGHT IN REACH.
--- NOTE | 2018-04-24 11:15 | NUR ---
PT MEDICATED WITH PERCOCET PO PER PRN ORDER, SEE EMAR. FOR C/O ABDOMINAL PAIN, RATES PAIN 6 ON PAIN SCALE 0-10. CALL LIGHT IN REACH.
--- NOTE | 2018-04-24 12:50 | NUR ---
NO C/O AT THIS TIME. WAITING FOR DISCHARGE. CALL LIGHT IN REACH.
[2018-04-24] MEDS ORDERED: PERCOCET 7.5 MG-325 PO ×2 (13:19→13:32)
[2018-04-24] MEDS ORDERED: ZOFRAN4 MG SL (13:19)
--- NOTE | 2018-04-24 13:47 | NUR ---
CALLED DR. SOLIS AWARE OF DISCHARGE. FOLLOW UP IN 2 WEEKS.
--- NOTE | 2018-04-24 13:54 | NUR ---
Discharge instructions reviewed with patient/family. Patient receptive and verbalizes understanding. Follow-up care arranged. Written instructions given to patient/family. HEPLOCK REMOVED 2X2 APPLIED. MONITOR REMOVED. GRANT LUQUE
--- NOTE | 2018-04-24 14:03 | NUR ---
AMBULATORY OFF THE FLOOR WITH VISITOR AT HER SIDE.
[2018-04-25] MEDS ORDERED: PERCOCET 5-3251 EACH PO (11:35)
[2018-05-15] MEDS ORDERED: TRAMADOL HCL50 MG PO (12:59)
[2018-05-15] MEDS ORDERED: HYOSCYAMINE0.125 MG PO (13:00)
[2018-05-15] MEDS ORDERED: OMEPRAZOLE20 M2 PO (13:02)
[2018-09-16] MEDS ORDERED: SEPTDS PO (16:44)
== END 2018-04-24 14:05 | disposition home or self-care (01) | DRG 440 ==
LOC: ED 23:37 → 5E 04-19 01:35 → EDHOLD 04-19 01:35 → 5E 04-19 02:07
PROVIDERS: Internal Medicine; Internal Medicine Gastroenterology; Nurse Practitioner Family; ADMIT Internal Medicine
DX: K85.90 Acute pancreatitis without necrosis or infection, unspecified (principal); R00.0 Tachycardia, unspecified; K86.1 Other chronic pancreatitis; E66.9 Obesity, unspecified; R73.9 Hyperglycemia, unspecified; I10 Essential (primary) hypertension; Z87.440 Personal history of urinary (tract) infections; Z90.49 Acquired absence of other specified parts of digestive tract; Z87.01 Personal history of pneumonia (recurrent); Z90.79 Acquired absence of other genital organ(s); Z90.722 Acquired absence of ovaries, bilateral; Z80.9 Family history of malignant neoplasm, unspecified; Z68.38 Body mass index [BMI] 38.0-38.9, adult

== ENCOUNTER → 2018-05-15 | Day surgery (SDC) | payer OTHER ==
[~2018-05-15] VITALS: Ht 167.6 cm; Wt 90.7 kg
[~2018-05-15] MED LIST changes: +HYOSCYAMINE0.125 MG PO; +OMEPRAZOLE20 M2 PO; +PERCOCET 5-3251 EACH PO; +PERCOCET 7.5 MG-325 PO; +SEPTDS PO; +TAMIFLU 75MG CA75 MG PO; +ZOFRAN4 MG SL
--- NOTE | ~2018-05-15 | O ---
[place], [place] OPERATIVE NOTE NAME: JANETTE BALDERRAMA UNIT #: [id number] ROOM: DOCTOR: LANA SOLIS MD BIRTHDATE: [birth year] DOS: 05/15/2018 GASTROENDOSCOPIC REPORT INDICATIONS: This is a 18-year-old patient who presented with a chief complaint of abdominal pain, left lower quadrant pain, epigastric distress, dyspepsia, positive diarrhea, and irregular bowels. ALLERGIES: No known medications. FAMILY HISTORY: Noncontributory. PAST SURGICAL HISTORY: Right leg, cholecystectomy, tonsillectomy, tubal. PAST MEDICAL HISTORY: Otherwise unremarkable. PROCEDURE: Today's procedure part of investigation is panendoscopy and colonoscopy. PREMEDICATION: Propofol. SCOPE: Olympus forward-viewing gastroscope Q10 video. REPORT: After putting the patient in left lateral position and application of lubricant to the scope, the scope was introduced, thereafter under direct visualization advanced through the length of esophagus without difficulty. Gastric pouch was entered, mild gastritis seen. Duodenal bulb, second and third part within normal limits. Antral biopsy obtained. The patient extubated after GI reflexion of the scope, which reveals cardia to be benign. IMPRESSION: Gastritis. PLAN AND DISCUSSION: Due to the symptomatology of gastritis she is experiencing, we are going to keep her on PPI therapy. Otherwise, I am going to proceed with colonoscopy today. PROCEDURE #2: Today's procedure part of investigation of abdominal pain and change in bowel habits is colonoscopy. PREMEDICATION: Propofol. SCOPE: Olympus forward-viewing colonoscope 10L video. REPORT: After putting the patient in left lateral position and application of lubricant to the scope, the scope was introduced, thereafter under direct visualization advanced through the length of colon without difficulty. Base of the cecum explored, appendiceal orifice identified, ileocecal valve identified, no acute pathology seen. The patient extubated, tolerated the procedure well. IMPRESSION: Normal colonoscopic examination. Consideration of irritable bowel [place], [place] OPERATIVE NOTE NAME: JANETTE BALDERRAMA UNIT #: [id number] ROOM: DOCTOR: LANA SOLIS MD BIRTHDATE: [birth year] syndrome to be kept in mind. Furthermore, I have had MRI of the abdomen results, dilated intrahepatic and extrahepatic ducts 1.3 cm, some upper abdominal ascites, peripancreatic fluid compatible with possibility of pancreatitis, a small amount of fluid in the cholecystic site. The date of this MRCP is 04/19/2018. PLAN AND DISCUSSION: I am going to repeat LFTs. I am going to repeat lipase on her and CBC. Meanwhile, I will treat her for IBS and gastritis until data is available. We will see her in the office in a week or two. This patient is most likely going to end up with an ERCP diagnostic and therapeutic to see if there would be any difference in her management. Thank you very much indeed. LANA SOLIS MD CM:LUISORD:OPERATIVE NOTE [id number] LANA SOLIS MD 05/16/18 1717 interface
[2018-05-15 11:18] VITALS: BP 141/91
[2018-05-15 12:29] VITALS: BP 88/46
[2018-05-15 12:43] VITALS: BP 96/45
[2018-05-15 12:59] VITALS: BP 102/54
== END | disposition home or self-care (01) ==
LOC: SDC 05-09 12:30
DX: K29.50 Unspecified chronic gastritis without bleeding (principal); K21.9 Gastro-esophageal reflux disease without esophagitis; R10.32 Left lower quadrant pain; R18.8 Other ascites; E66.9 Obesity, unspecified; Z90.49 Acquired absence of other specified parts of digestive tract; Z98.890 Other specified postprocedural states; Z87.01 Personal history of pneumonia (recurrent)

== ENCOUNTER 2018-06-20 12:17 | Emergency (ER) | payer OTHER ==
[~2018-06-20] VITALS: Ht 167.6 cm; Wt 90.7 kg
[~2018-06-20 12:17] MED LIST changes: -SEPTDS PO; -TAMIFLU 75MG CA75 MG PO
[2018-06-20 12:18] VITALS: BP 115/71
[2018-06-20] MEDS ORDERED: TAMIFLU 75MG CA75 MG PO (13:11)
[2018-09-16] MEDS ORDERED: SEPTDS PO (16:44)
== END 2018-06-20 13:12 | disposition home or self-care (01) ==
LOC: ED 12:17
DX: J10.1 Influenza due to other identified influenza virus with other respiratory manifestations (principal); Z79.899 Other long term (current) drug therapy; Z90.49 Acquired absence of other specified parts of digestive tract

== ENCOUNTER 2018-12-04 12:00 | Emergency (ER) | payer OTHER ==
[~2018-12-04] VITALS: Ht 170.1 cm; Wt 86.2 kg
[~2018-12-04 12:00] MED LIST changes: +SEPTDS PO; +TAMIFLU 75MG CA75 MG PO
[2018-12-04 12:02] VITALS: BP 121/59
[2018-12-04 12:24] LABS: BASO % 0.3 % (0.0-1.0); EOS # 0.1 10*3/uL (0.0-0.4); EOS % 1.3 % (1.0-4.0); HEMATOCRIT 37.8 % (37.0-47.0); HEMOGLOBIN 12.5 g/dl (12.0-16.0); LYMPH # 2.1 10*3/uL (1.3-4.4); LYMPH % 33.8 % (27.0-41.0); MEAN CELL VOLUME 87.5 fl (81.0-99.0); MEAN CORPUSCULAR HGB 28.9 pg (27.0-31.0); MEAN CORPUSCULAR HGB CONC 33.1 g/dl (33.0-37.0); MEAN PLATELET VOLUME 8.9 fl (9.6-12.3); MONO # 0.4 10*3/uL (0.1-1.0); MONO % 7.1 % (3.0-9.0); NEUT # 3.5 10*3/uL (2.3-7.9); NEUT % 57.2 % (47.0-73.0); PLATELET COUNT AUTOMATED 319 10*3/uL (130-400); RED BLOOD COUNT 4.32 10*6/uL (4.10-5.10); RED CELL DISTRI WIDTH 13.2 % (0-14.5); WHITE BLOOD COUNT 6.1 10*3/uL (4.8-10.8)
[2018-12-04 12:37] LABS: BUN 12 mg/dl (7-24); CHLORIDE 105 mmol/L (98-107); POTASSIUM 4.2 mmol/L (3.5-5.1); SODIUM 138 mmol/L (136-145)
[2018-12-04 12:47] LABS: BETA-HCG, QUANT < 1.0 mIU/mL (1-3)
[2018-12-04 12:51] LABS: BILIRUBIN NEGATIVE (NEGATIVE); BLOOD 1+ (NEGATIVE); CLARITY CLOUDY (CLEAR); COLOR YELLOW (YELLOW); GLUCOSE NEGATIVE (NEGATIVE); KETONE NEGATIVE (NEGATIVE); LEUKO ESTERASE 2+ (NEGATIVE); NITRITE POSITIVE (NEGATIVE); SPECIFIC GRAVITY 1.015 (1.005-1.030); UROBILINOGEN 0.2 E.U./dl (0.2-1.0)
[2018-12-04 12:59] LABS: BACTERIA 4+
[2018-12-04 13:02] LABS: WBC 21-30 wbc/hpf (0-5)
== END 2018-12-04 12:49 | disposition home or self-care (01) ==
LOC: ED 12:00
PROVIDERS: Emergency Medicine
DX: N93.8 Other specified abnormal uterine and vaginal bleeding (principal); I10 Essential (primary) hypertension; Z90.49 Acquired absence of other specified parts of digestive tract; Z79.899 Other long term (current) drug therapy

== ENCOUNTER 2019-01-27 14:44 | Emergency (ER) | payer OTHER ==
[~2019-01-27] VITALS: Ht 170.1 cm; Wt 86.2 kg
[2019-01-27 14:47] VITALS: BP 120/72
[2019-01-27 16:18] LABS: BILIRUBIN NEGATIVE (NEGATIVE); BLOOD TRACE-INTACT (NEGATIVE); CLARITY SL CLOUDY (CLEAR); COLOR YELLOW (YELLOW); GLUCOSE NEGATIVE (NEGATIVE); KETONE NEGATIVE (NEGATIVE); LEUKO ESTERASE 1+ (NEGATIVE); NITRITE NEGATIVE (NEGATIVE)
[2019-01-27 16:29] LABS: BACTERIA 1+; RBC 0-2 rbc/hpf (0-2)
[2019-01-27] MEDS ORDERED: MACROBID100 M1 PO (21:03)
== END 2019-01-27 16:13 | disposition home or self-care (01) ==
LOC: ED 14:44
PROVIDERS: Nurse Practitioner
DX: N39.0 Urinary tract infection, site not specified (principal); Z32.02 Encounter for pregnancy test, result negative; Z90.49 Acquired absence of other specified parts of digestive tract

== ENCOUNTER 2019-04-27 13:42 | Emergency (ER) | payer OTHER ==
[~2019-04-27] VITALS: Ht 167.6 cm; Wt 90.7 kg
[2019-04-27 13:59] VITALS: BP 131/66
[2019-04-27 15:42] LABS: BILIRUBIN NEGATIVE (NEGATIVE); BLOOD 1+ (NEGATIVE); CLARITY CLOUDY (CLEAR); COLOR YELLOW (YELLOW); GLUCOSE NEGATIVE (NEGATIVE); KETONE NEGATIVE (NEGATIVE); LEUKO ESTERASE 2+ (NEGATIVE); NITRITE POSITIVE (NEGATIVE); SPECIFIC GRAVITY 1.015 (1.005-1.030); UROBILINOGEN 0.2 E.U./dl (0.2-1.0)
[2019-04-27 15:48] LABS: BACTERIA 4+; EPITHELIAL CELLS TNTC; WBC 51-100 wbc/hpf (0-5)
[2019-04-27] MEDS ORDERED: ANAPROX DS550 MG PO (15:55)
[2019-04-27] MEDS ORDERED: KEFLEX500 M1 PO (15:55)
[2019-04-30 22:04] LABS: GONOCOCCUS BY NAA Negative (Negative)
== END 2019-04-27 17:31 | disposition home or self-care (01) ==
LOC: ED 13:42
PROVIDERS: Physician Assistant
DX: M54.6 Pain in thoracic spine (principal); M54.2 Cervicalgia; N39.0 Urinary tract infection, site not specified; Z79.899 Other long term (current) drug therapy; V89.2XXA Person injured in unspecified motor-vehicle accident, traffic, initial encounter; Y93.89 Activity, other specified; Y92.481 Parking lot as the place of occurrence of the external cause; Y99.8 Other external cause status

== ENCOUNTER 2019-10-08 11:54 | Emergency (ER) | payer OTHER ==
[~2019-10-08] VITALS: Ht 167.6 cm; Wt 993.4 kg
[~2019-10-08 11:54] MED LIST changes: +ANAPROX DS550 MG PO; +KEFLEX500 M1 PO
[2019-10-08 12:02] VITALS: BP 142/82
[2019-10-08 13:23] LABS: BILIRUBIN NEGATIVE (NEGATIVE); CLARITY SL CLOUDY (CLEAR); COLOR YELLOW (YELLOW); GLUCOSE NEGATIVE (NEGATIVE); KETONE NEGATIVE (NEGATIVE); SPECIFIC GRAVITY 1.025 (1.005-1.030)
[2019-10-08 13:24] LABS: BLOOD 2+ (NEGATIVE); LEUKO ESTERASE 1+ (NEGATIVE); MUCOUS 1+; NITRITE NEGATIVE (NEGATIVE); UROBILINOGEN 0.2 E.U./dl (0.2-1.0)
[2019-10-08 13:25] LABS: BACTERIA 2+
== END 2019-10-08 13:34 | disposition home or self-care (01) ==
LOC: ED 11:54
PROVIDERS: Nurse Practitioner Family
DX: R10.30 Lower abdominal pain, unspecified (principal); R11.0 Nausea; N89.8 Other specified noninflammatory disorders of vagina; Z20.2 Contact with and (suspected) exposure to infections with a predominantly sexual mode of transmission

== ENCOUNTER → 2020-04-15 | Outpatient (CLI) | payer OTHER ==
[~2020-04-15] MED LIST changes: +IBUPROFEN600 MG PO
== END | disposition home or self-care (01) ==
LOC: COVID19 11:06
PROVIDERS: ATTEND Internal Medicine
DX: Z20.822 Contact with and (suspected) exposure to COVID-19 (principal)

== ENCOUNTER 2020-07-22 12:21 | Emergency (ER) | payer OTHER ==
[~2020-07-22] VITALS: Ht 167.6 cm; Wt 104.3 kg
[~2020-07-22 12:21] MED LIST changes: -IBUPROFEN600 MG PO
[2020-07-22 12:32] VITALS: BP 139/58
[2020-07-22 13:52] LABS: BILIRUBIN Negative (Negative); BLOOD 1+ (Negative); CLARITY Cloudy (Clear); COLOR Yellow (Yellow); GLUCOSE Negative (Negative); KETONE Negative (Negative); LEUKO ESTERASE 3+ (Negative); NITRITE Negative (Negative); PH 5.5 (4.5-8.0); UROBILINOGEN 0.2 E.U./dl (0.0-1.0)
[2020-07-22 14:13] LABS: BACTERIA 2+; EPITHELIAL CELLS 16-20
[2020-07-22] MEDS ORDERED: IBUPROFEN600 MG PO (15:01)
== END 2020-07-22 15:18 | disposition home or self-care (01) ==
LOC: ED 12:21
PROVIDERS: Physician Assistant
DX: S93.401A Sprain of unspecified ligament of right ankle, initial encounter (principal); Z98.890 Other specified postprocedural states; Z90.79 Acquired absence of other genital organ(s); Z90.49 Acquired absence of other specified parts of digestive tract; X50.1XXA Overexertion from prolonged static or awkward postures, initial encounter; Y93.89 Activity, other specified; Y92.89 Other specified places as the place of occurrence of the external cause; Y99.8 Other external cause status

== ENCOUNTER 2020-09-13 12:03 | Emergency (ER) | payer OTHER ==
[~2020-09-13] VITALS: Ht 167.6 cm; Wt 97.5 kg
[~2020-09-13 12:03] MED LIST changes: +IBUPROFEN600 MG PO
[2020-09-13 12:26] VITALS: BP 133/59
[2020-09-13] MEDS ORDERED: AMOXICILLIN500 M2 PO (12:57)
[2020-09-13] MEDS ORDERED: Motrin,Rufen800 MG PO (12:57)
== END 2020-09-13 13:10 | disposition home or self-care (01) ==
LOC: ED 12:03
DX: K08.89 Other specified disorders of teeth and supporting structures (principal); Z79.899 Other long term (current) drug therapy; Z98.890 Other specified postprocedural states; Z90.79 Acquired absence of other genital organ(s); Z90.49 Acquired absence of other specified parts of digestive tract

== ENCOUNTER 2020-10-05 12:49 | Inpatient (IN) | payer OTHER ==
[~2020-10-05] VITALS: Ht 167.6 cm; Wt 126.2 kg
[~2020-10-05 12:49] MED LIST changes: +AMOXICILLIN500 M2 PO
[2020-10-05 13:02] VITALS: BP 113/117
[2020-10-05 13:11] VITALS: BP 148/88
[2020-10-05 13:46] LABS: BASO % 0.2 % (0.0-1.0); EOS % 0.5 % (1.0-4.0); HEMATOCRIT 42.2 % (37.0-47.0); LYMPH # 1.5 10*3/uL (1.3-4.4); LYMPH % 17.1 % (27.0-41.0); MEAN CELL VOLUME 92.3 fl (81.0-99.0); MEAN CORPUSCULAR HGB 30.4 pg (27.0-31.0); MEAN CORPUSCULAR HGB CONC 32.9 g/dl (33.0-37.0); MEAN PLATELET VOLUME 8.7 fl (9.6-12.3); MONO # 0.5 10*3/uL (0.1-1.0); MONO % 5.9 % (3.0-9.0); NEUT # 6.6 10*3/uL (2.3-7.9); NEUT % 76.1 % (47.0-73.0); PLATELET COUNT AUTOMATED 345 10*3/uL (130-400); RED BLOOD COUNT 4.57 10*6/uL (4.10-5.10); RED CELL DISTRI WIDTH 13.8 % (0-14.5); WHITE BLOOD COUNT 8.7 10*3/uL (4.8-10.8)
[2020-10-05 14:01] LABS: ALBUMIN 3.7 gm/dl (3.1-4.5); ALKALINE PHOSPHATASE 137 U/L (45-117); BUN 10 mg/dl (7-24); CHLORIDE 106 mmol/L (98-107); CREATININE 0.81 mg/dL (0.55-1.02); POTASSIUM 3.8 mmol/L (3.5-5.1); SGOT/AST 957 IU/L (3-35); SGPT/ALT 717 U/L (12-78); SODIUM 136 mmol/L (136-145); TOTAL PROTEIN 7.8 gm/dL (6.4-8.2)
[2020-10-05 14:02] LABS: LIPASE 25812 U/L (73-393)
[2020-10-05] MEDS ORDERED: LAMOTRIGINE25 M1 PO (15:49)
[2020-10-05 19:05] VITALS: BP 155/74
[2020-10-05 20:30] VITALS: BP 149/76
[2020-10-05 20:46] LABS: BILIRUBIN 2+ (Negative); BLOOD 3+ (Negative); CLARITY Turbid (Clear); COLOR Dark Yellow (Yellow); GLUCOSE Trace (Negative); KETONE 2+ (Negative); LEUKO ESTERASE 2+ (Negative); NITRITE Negative (Negative); SPECIFIC GRAVITY >= 1.030 (1.001-1.030)
[2020-10-05 21:18] LABS: EPITHELIAL CELLS 41-50; RBC 21-30 rbc/hpf (0-2); URINE AMPHETAMINES < 1000 (1000ng/ml); URINE BARBITURATES < 200 (200ng/ml); URINE BENZODIAZEPINES < 200 (200ng/ml); URINE CANNABINOIDS (THC) > 50 (50ng/ml); URINE COCAINE < 300 (300ng/ml); URINE METHADONE < 300 (300ng/ml); URINE OPIATES > 300 (300ng/ml); WBC 21-30 wbc/hpf (0-5)
[2020-10-05 21:19] LABS: BACTERIA 3+
[2020-10-05 21:28] LABS: URINE PHENCYCLIDINE < 25 (25ng/ml)
[2020-10-06] VITALS: BP 153/90
[2020-10-06 06:14] LABS: BASO % 0.1 % (0.0-1.0); HEMATOCRIT 38.6 % (37.0-47.0); LYMPH % 6.2 % (27.0-41.0); MEAN CELL VOLUME 93.7 fl (81.0-99.0); MEAN CORPUSCULAR HGB 30.6 pg (27.0-31.0); MEAN CORPUSCULAR HGB CONC 32.6 g/dl (33.0-37.0); MEAN PLATELET VOLUME 9.3 fl (9.6-12.3); MONO # 0.5 10*3/uL (0.1-1.0); MONO % 3.4 % (3.0-9.0); NEUT # 13.8 10*3/uL (2.3-7.9); NEUT % 89.8 % (47.0-73.0); PLATELET COUNT AUTOMATED 319 10*3/uL (130-400); RED BLOOD COUNT 4.12 10*6/uL (4.10-5.10); RED CELL DISTRI WIDTH 13.9 % (0-14.5); WHITE BLOOD COUNT 15.4 10*3/uL (4.8-10.8)
[2020-10-06 06:30] LABS: ALBUMIN 3.2 gm/dl (3.1-4.5); ALKALINE PHOSPHATASE 153 U/L (45-117); BUN 8 mg/dl (7-24); CHLORIDE 106 mmol/L (98-107); CHOLESTEROL 167 mg/dL (<200); CREATININE 0.64 mg/dL (0.55-1.02); FREE T4 0.87 ng/dl (0.76-1.46); LDL CHOLESTEROL 94 mg/dL (9-159); POTASSIUM 3.6 mmol/L (3.5-5.1); SGOT/AST 424 IU/L (3-35); SGPT/ALT 639 U/L (12-78); SODIUM 135 mmol/L (136-145); TOTAL PROTEIN 6.9 gm/dL (6.4-8.2); TRIGLYCERIDES 78 mg/dl (<150)
[2020-10-06 06:34] LABS: THYROID STIM HORMONE (HS) 0.499 uIU/ml (0.358-4.75)
[2020-10-06 06:44] LABS: LIPASE 5487 U/L (73-393)
[2020-10-06 08:00] VITALS: BP 136/78
[2020-10-06 12:00] VITALS: BP 129/67
[2020-10-06 16:00] VITALS: BP 148/92
[2020-10-06 20:00] VITALS: BP 142/74
[2020-10-07] VITALS: BP 141/77
[2020-10-07 06:25] LABS: BASO % 0.1 % (0.0-1.0); EOS % 0.1 % (1.0-4.0); HEMATOCRIT 38.8 % (37.0-47.0); LYMPH # 0.9 10*3/uL (1.3-4.4); MEAN CELL VOLUME 92.2 fl (81.0-99.0); MEAN CORPUSCULAR HGB 29.9 pg (27.0-31.0); MEAN CORPUSCULAR HGB CONC 32.5 g/dl (33.0-37.0); MONO # 0.7 10*3/uL (0.1-1.0); MONO % 4.7 % (3.0-9.0); NEUT # 13.6 10*3/uL (2.3-7.9); NEUT % 88.6 % (47.0-73.0); PLATELET COUNT AUTOMATED 296 10*3/uL (130-400); RED BLOOD COUNT 4.21 10*6/uL (4.10-5.10); WHITE BLOOD COUNT 15.4 10*3/uL (4.8-10.8)
[2020-10-07 06:51] LABS: ALBUMIN 3.3 gm/dl (3.1-4.5); ALKALINE PHOSPHATASE 138 U/L (45-117); BUN 6 mg/dl (7-24); CHLORIDE 104 mmol/L (98-107); POTASSIUM 3.3 mmol/L (3.5-5.1); SGOT/AST 103 IU/L (3-35); SGPT/ALT 379 U/L (12-78); SODIUM 135 mmol/L (136-145); TOTAL PROTEIN 7.5 gm/dL (6.4-8.2)
[2020-10-07 06:55] LABS: LIPASE 1581 U/L (73-393)
[2020-10-07 08:00] VITALS: BP 151/73
[2020-10-07 11:42] VITALS: BP 151/86
[2020-10-07 16:00] VITALS: BP 150/68
[2020-10-07 20:00] VITALS: BP 137/86
[2020-10-08] VITALS: BP 134/87
[2020-10-08 06:36] LABS: BASO % 0.1 % (0.0-1.0); EOS % 0.1 % (1.0-4.0); HEMATOCRIT 35.4 % (37.0-47.0); LYMPH # 1.2 10*3/uL (1.3-4.4); LYMPH % 8.3 % (27.0-41.0); MEAN CELL VOLUME 92.2 fl (81.0-99.0); MEAN CORPUSCULAR HGB 30.2 pg (27.0-31.0); MEAN CORPUSCULAR HGB CONC 32.8 g/dl (33.0-37.0); MEAN PLATELET VOLUME 8.8 fl (9.6-12.3); MONO # 0.8 10*3/uL (0.1-1.0); MONO % 5.9 % (3.0-9.0); NEUT % 84.8 % (47.0-73.0); PLATELET COUNT AUTOMATED 264 10*3/uL (130-400); RED BLOOD COUNT 3.84 10*6/uL (4.10-5.10); WHITE BLOOD COUNT 14.1 10*3/uL (4.8-10.8)
[2020-10-08 06:57] LABS: ALBUMIN 3.1 gm/dl (3.1-4.5); ALKALINE PHOSPHATASE 112 U/L (45-117); BUN 5 mg/dl (7-24); CHLORIDE 104 mmol/L (98-107); CREATININE 0.44 mg/dL (0.55-1.02); LIPASE 421 U/L (73-393); SGOT/AST 36 IU/L (3-35); SGPT/ALT 234 U/L (12-78); SODIUM 136 mmol/L (136-145); TOTAL PROTEIN 7.3 gm/dL (6.4-8.2)
[2020-10-08 08:00] VITALS: BP 142/71
[2020-10-08 10:56] VITALS: BP 118/69
[2020-10-08 16:00] VITALS: BP 145/68
[2020-10-08 20:00] VITALS: BP 140/82
== END 2020-10-08 21:23 | disposition left against medical advice (07) | DRG 282 ==
LOC: ED 12:49 → EDHOLD 14:40 → 5E 14:40
PROVIDERS: Emergency Medicine; Internal Medicine; Registered Nurse; ADMIT Family Medicine; ATTEND Family Medicine
DX: K85.20 Alcohol induced acute pancreatitis without necrosis or infection (principal); R74.01 Elevation of levels of liver transaminase levels; I10 Essential (primary) hypertension; E44.0 Moderate protein-calorie malnutrition; Z53.29 Procedure and treatment not carried out because of patient's decision for other reasons; N93.9 Abnormal uterine and vaginal bleeding, unspecified; N39.0 Urinary tract infection, site not specified; B95.1 Streptococcus, group B, as the cause of diseases classified elsewhere; A64 Unspecified sexually transmitted disease; K83.8 Other specified diseases of biliary tract; R73.9 Hyperglycemia, unspecified; M54.9 Dorsalgia, unspecified; Z90.49 Acquired absence of other specified parts of digestive tract; Z87.440 Personal history of urinary (tract) infections; Z87.01 Personal history of pneumonia (recurrent); Z90.79 Acquired absence of other genital organ(s); Z90.721 Acquired absence of ovaries, unilateral; Z80.8 Family history of malignant neoplasm of other organs or systems; Z83.3 Family history of diabetes mellitus; Z79.899 Other long term (current) drug therapy; Z68.41 Body mass index [BMI] 40.0-44.9, adult

== ENCOUNTER 2020-11-28 16:28 | Emergency (ER) | payer OTHER ==
[~2020-11-28 16:28] MED LIST changes: +LAMOTRIGINE25 M1 PO
[2020-11-28 17:20] VITALS: BP 134/97
[2020-11-28] MEDS ORDERED: PROVENTIL HFA6.7 GM INH (17:45)
[2020-11-28] MEDS ORDERED: PREDNISONE20 M1 PO (17:45)
== END 2020-11-28 19:07 | disposition home or self-care (01) ==
LOC: ED 16:28
DX: U07.1 COVID-19 (principal); Z90.49 Acquired absence of other specified parts of digestive tract; Z79.899 Other long term (current) drug therapy

== ENCOUNTER 2022-02-23 23:17 | Emergency (ER) | payer OTHER ==
[~2022-02-23] VITALS: Ht 165.1 cm; Wt 86.2 kg
[~2022-02-23 23:17] MED LIST changes: +PREDNISONE20 M1 PO; +PROVENTIL HFA6.7 GM INH
[2022-02-23 23:21] VITALS: BP 126/85
[2022-02-24] MEDS ORDERED: TAMIFLU 75MG CA75 MG PO (00:44)
== END 2022-02-24 00:51 | disposition home or self-care (01) ==
LOC: ED 23:17
DX: J10.1 Influenza due to other identified influenza virus with other respiratory manifestations (principal); Z20.822 Contact with and (suspected) exposure to COVID-19; Z90.89 Acquired absence of other organs; Z98.890 Other specified postprocedural states; Z90.49 Acquired absence of other specified parts of digestive tract

== ENCOUNTER 2022-05-16 22:36 | Emergency (ER) | payer OTHER | END 2022-05-16 22:53 | disposition left against medical advice (07) | LOC: ED 22:36 | DX: O46.91 Antepartum hemorrhage, unspecified, first trimester (principal); Z3A.01 Less than 8 weeks gestation of pregnancy; Z98.890 Other specified postprocedural states; Z90.89 Acquired absence of other organs ==

== ENCOUNTER 2022-06-12 20:08 | Emergency (ER) | payer OTHER ==
[~2022-06-12] VITALS: Ht 167.6 cm; Wt 97.5 kg
[2022-06-12 20:20] VITALS: BP 138/80
[2022-06-12 20:34] LABS: BASO % 0.4 % (0.0-1.0); EOS # 0.1 10*3/uL (0.0-0.4); EOS % 0.9 % (1.0-4.0); HEMATOCRIT 37.9 % (37.0-47.0); LYMPH # 1.3 10*3/uL (1.3-4.4); LYMPH % 22.4 % (27.0-41.0); MEAN CELL VOLUME 98.4 fl (81.0-99.0); MEAN CORPUSCULAR HGB CONC 34.6 g/dl (33.0-37.0); MEAN PLATELET VOLUME 8.3 fl (9.6-12.3); MONO # 0.4 10*3/uL (0.1-1.0); MONO % 6.7 % (3.0-9.0); NEUT # 3.9 10*3/uL (2.3-7.9); NEUT % 69.4 % (47.0-73.0); PLATELET COUNT AUTOMATED 266 10*3/uL (130-400); RED BLOOD COUNT 3.85 10*6/uL (4.10-5.10); RED CELL DISTRI WIDTH 12.4 % (0-14.5); WHITE BLOOD COUNT 5.7 10*3/uL (4.8-10.8)
[2022-06-12 20:49] LABS: ALKALINE PHOSPHATASE 132 U/L (46-116); BUN 10 mg/dl (9-23); CHLORIDE 108 mmol/L (98-107); LIPASE 154 U/L (12-53); POTASSIUM 4.3 mmol/L (3.4-5.1); SGPT/ALT 140 U/L (10-49); TOTAL PROTEIN 6.8 gm/dL (6.0-8.0)
== END 2022-06-13 03:01 | disposition short-term general hospital (02) ==
LOC: ED 20:08
PROVIDERS: Internal Medicine
DX: O00.90 Unspecified ectopic pregnancy without intrauterine pregnancy (principal); K85.20 Alcohol induced acute pancreatitis without necrosis or infection; R79.89 Other specified abnormal findings of blood chemistry; Z90.49 Acquired absence of other specified parts of digestive tract; Z98.890 Other specified postprocedural states

== ENCOUNTER 2022-10-09 20:09 | Emergency (ER) | payer SELFPAY | END 2022-10-09 23:32 | disposition left against medical advice (07) | LOC: ED 20:09 | DX: M25.519 Pain in unspecified shoulder (principal); R07.81 Pleurodynia; Z53.21 Procedure and treatment not carried out due to patient leaving prior to being seen by health care provider ==

== ENCOUNTER 2022-11-09 17:53 | Emergency (ER) | payer SELFPAY ==
[~2022-11-09] VITALS: Ht 167.6 cm; Wt 77.1 kg
[2022-11-09] MEDS ORDERED: PENICILLIN-VK500 M1 PO (18:34)
== END 2022-11-09 19:04 | disposition home or self-care (01) ==
LOC: ED 17:53
DX: K08.89 Other specified disorders of teeth and supporting structures (principal); Z98.890 Other specified postprocedural states; Z90.49 Acquired absence of other specified parts of digestive tract

== ENCOUNTER 2023-04-03 19:44 | Emergency (ER) | payer SELFPAY ==
[~2023-04-03] VITALS: Ht 170.1 cm; Wt 97.5 kg
[~2023-04-03 19:44] MED LIST changes: +PENICILLIN-VK500 M1 PO
[2023-04-03 20:06] VITALS: BP 135/83
[2023-04-03] MEDS ORDERED: AMOX-CLAV 875-1 EACH PO (20:29)
== END 2023-04-03 20:22 | disposition home or self-care (01) ==
LOC: ED 19:44
DX: H66.93 Otitis media, unspecified, bilateral (principal); B34.9 Viral infection, unspecified; R73.9 Hyperglycemia, unspecified; I10 Essential (primary) hypertension; Z98.890 Other specified postprocedural states; Z90.49 Acquired absence of other specified parts of digestive tract; Z90.89 Acquired absence of other organs

== ENCOUNTER 2024-05-28 03:27 | Inpatient (IN) | payer SELFPAY ==
[~2024-05-28] VITALS: Ht 162.5 cm; Wt 102.0 kg
[2024-05-28] VITALS (13 sets, daily range): BP systolic 115–142; BP diastolic 60–96
[~2024-05-28 03:27] MED LIST changes: +AMOX-CLAV 875-1 EACH PO
[2024-05-28 04:05] LABS: BASO % 0.2 % (0.0-1.0); EOS # 0.1 10*3/uL (0.0-0.4); EOS % 0.3 % (1.0-4.0); HEMATOCRIT 40.5 % (37.0-47.0); MEAN CELL VOLUME 91.8 fl (81.0-99.0); MEAN CORPUSCULAR HGB 29.9 pg (27.0-31.0); MEAN CORPUSCULAR HGB CONC 32.6 g/dl (33.0-37.0); MEAN PLATELET VOLUME 8.6 fl (9.6-12.3); MONO # 0.8 10*3/uL (0.1-1.0); MONO % 4.3 % (3.0-9.0); NEUT # 15.4 10*3/uL (2.3-7.9); NEUT % 86.5 % (47.0-73.0); PLATELET COUNT AUTOMATED 326 10*3/uL (130-400); RED BLOOD COUNT 4.41 10*6/uL (4.10-5.10); WHITE BLOOD COUNT 17.8 10*3/uL (4.8-10.8)
[2024-05-28 04:26] LABS: ALKALINE PHOSPHATASE 68 U/L (46-116); BUN 10 mg/dl (9-23); CHLORIDE 103 mmol/L (98-107); LIPASE 30 U/L (12-53); POTASSIUM 3.9 mmol/L (3.4-5.1); SGPT/ALT 11 U/L (5-49); TOTAL PROTEIN 7.6 gm/dL (6.0-8.0)
[2024-05-28] MEDS ORDERED: Piperacillin Sodium/Tazobact 50 ML IV ONE ×2 (04:45→05:00)
[2024-05-28] MEDS ORDERED: SODIUM CHLORIDE 0.9% 1,000 ML IV ONE ×2 (04:45→06:10)
[2024-05-28] MEDS ORDERED: HYDROmorphONE Hydrochloride 0.5 MG/0.5 ML SYRINGE IV ONE (05:30)
[2024-05-28] MEDS ORDERED: Ondansetron Hydrochloride 4 MG/2 ML VIAL IV ONE (05:30)
[2024-05-28] MEDS ORDERED: SODIUM CHLORIDE 0.9% 1,000 ML IV SCH (05:40)
[2024-05-28] MEDS ORDERED: MORPHINE Sulfate 2 MG/ML SYR IV PRN (06:05)
[2024-05-28] MEDS ORDERED: ACETAMINOPHEN 650 MG SUPP R PRN (06:05)
[2024-05-28] MEDS ORDERED: Ondansetron Hydrochloride 4 MG/2 ML VIAL IV PRN (06:05)
[2024-05-28] MEDS ORDERED: ACETAMINOPHEN 325 MG TAB PO PRN (06:05)
[2024-05-28] MEDS ORDERED: BUPivacaine 0.5% 30 ML IV ONE (07:35)
[2024-05-28] MEDS ORDERED: MORPHINE Sulfate 2 MG/ML SYR ONE ×2 (08:56→11:27)
[2024-05-28] MEDS ORDERED: MORPHINE Sulfate 2 MG/ML SYR IV ONE (11:10)
[2024-05-28] MEDS ORDERED: Piperacillin Sodium/Tazobact 50 ML IV SCH (12:00)
[2024-05-28] MEDS ORDERED: Lactated Ringer's Solution 1,000 ML IV ONE (12:15)
[2024-05-28] MEDS ORDERED: ACETAMINOPHEN 100 ML IV ONE (12:15)
[2024-05-28] MEDS ORDERED: HYDROmorphONE Hydrochloride 0.5 MG/0.5 ML SYRINGE IV PRN (13:25)
[2024-05-28] MEDS ORDERED: HYDROmorphONE Hydrochloride 0.5 MG/0.5 ML SYRINGE ONE ×3 (13:46→14:41)
[2024-05-28] MEDS ORDERED: fentaNYL CITRATE 100 MCG/2 ML VIAL IV ONE (16:51)
[2024-05-28] MEDS ORDERED: Ketamine Hydrochloride 500 MG/10 ML VIAL IV ONE (16:51)
[2024-05-28] MEDS ORDERED: Acetaminophen/Hydrocodone 5 MG/325 MG TABLET PO PRN (19:05)
[2024-05-29] VITALS: BP 118/67
[2024-05-29 06:40] LABS: BASO % 0.1 % (0.0-1.0); EOS % 0.1 % (1.0-4.0); HEMATOCRIT 38.6 % (37.0-47.0); MEAN CELL VOLUME 92.3 fl (81.0-99.0); MEAN CORPUSCULAR HGB 29.7 pg (27.0-31.0); MEAN CORPUSCULAR HGB CONC 32.1 g/dl (33.0-37.0); MEAN PLATELET VOLUME 9.1 fl (9.6-12.3); MONO # 0.5 10*3/uL (0.1-1.0); MONO % 4.6 % (3.0-9.0); NEUT # 8.3 10*3/uL (2.3-7.9); NEUT % 81.7 % (47.0-73.0); PLATELET COUNT AUTOMATED 320 10*3/uL (130-400); RED BLOOD COUNT 4.18 10*6/uL (4.10-5.10); RED CELL DISTRI WIDTH 13.3 % (0-14.5); WHITE BLOOD COUNT 10.2 10*3/uL (4.8-10.8)
[2024-05-29 07:19] LABS: ALKALINE PHOSPHATASE 62 U/L (46-116); BUN 7 mg/dl (9-23); CHLORIDE 102 mmol/L (98-107); CHOLESTEROL 182 mg/dL (<200); FREE T4 1.38 ng/dl (0.89-1.76); LDL CHOLESTEROL 93 mg/dL (9-159); POTASSIUM 3.7 mmol/L (3.4-5.1); SGPT/ALT 11 U/L (5-49); TOTAL PROTEIN 7.2 gm/dL (6.0-8.0); TRIGLYCERIDES 143 mg/dl (<150)
[2024-05-29 08:00] VITALS: BP 142/78
[2024-05-29] MEDS ORDERED: HYDROCODONE-AC1 EAC1 PO (12:06)
[2024-05-29] MEDS ORDERED: Ondansetron4 MG PO (12:08)
[2024-05-30] MEDS ORDERED: Ondansetron Hydrochloride 4 MG/2 ML VIAL IV ONE (13:46)
[2024-05-30] MEDS ORDERED: ROCURONIUM BROMIDE 50 MG/5 ML SYRINGE IV ONE (13:46)
[2024-05-30] MEDS ORDERED: Dexamethasone Sodium Phospha 4 MG/ML VIAL IV ONE (13:46)
[2024-05-30] MEDS ORDERED: SUGAMMADEX SODIUM 200 MG/2 ML VIAL IV ONE (13:46)
[2024-05-30] MEDS ORDERED: dexmedeTOMIDine HCL 200 MCG/2 ML VIAL IV ONE (13:46)
[2024-05-30] MEDS ORDERED: SEVOFLURANE 250 ML BOT INH ONE (13:46)
[2024-05-30] MEDS ORDERED: Ketorolac Tromethamine 30 MG/ML VIAL IV ONE (13:46)
[2024-05-30] MEDS ORDERED: Lidocaine Hydrochloride 2% 5 ML SDV IV ONE (13:46)
[2024-05-30] MEDS ORDERED: PROPOFOL 200 MG/20 ML VIAL IV ONE (13:46)
[2024-05-30] MEDS ORDERED: MAGNESIUM SULFATE 1 GM/2 ML VIAL IV ONE (13:46)
== END 2024-05-29 14:00 | disposition home or self-care (01) | DRG 854 ==
LOC: ED 03:27 → 4E 05:41 → EDHOLD 05:41 → 4E 08:06
PROVIDERS: Internal Medicine; Student in an Organized Health Care Education/Training Program; ADMIT Student in an Organized Health Care Education/Training Program; ATTEND Student in an Organized Health Care Education/Training Program
PROC: 0DTJ4ZZ Resection of Appendix, Percutaneous Endoscopic Approach (ICD-10-PCS; principal; 2024-05-28)
DX: A41.9 Sepsis, unspecified organism (principal); K35.80 Unspecified acute appendicitis; I10 Essential (primary) hypertension; Z88.0 Allergy status to penicillin; Z90.49 Acquired absence of other specified parts of digestive tract; Z83.3 Family history of diabetes mellitus; Z80.8 Family history of malignant neoplasm of other organs or systems

== ENCOUNTER 2025-01-11 20:13 | Emergency (ER) | payer MEDICAID ==
[~2025-01-11] VITALS: Wt 108.9 kg
[~2025-01-11 20:13] MED LIST changes: +HYDROCODONE-AC1 EAC1 PO; +Ondansetron4 MG PO
[2025-01-11 20:24] VITALS: BP 124/80
[2025-01-11 20:56] LABS: BILIRUBIN Negative (Negative); BLOOD Trace-Lysed (Negative); CLARITY Clear (Clear); COLOR Yellow (Yellow); KETONE Negative (Negative); LEUKO ESTERASE 1+ (Negative); NITRITE Negative (Negative); PH 6.5 (4.5-8.0); SPECIFIC GRAVITY 1.020 (1.001-1.030); UROBILINOGEN 1.0 E.U./dl (0.0-1.0)
[2025-01-11 21:09] LABS: BACTERIA 2+
[2025-01-11] MEDS ORDERED: AZITHROMYCIN 250 MG TAB PO ONE (21:20)
[2025-01-11] MEDS ORDERED: CIPRO500 MG PO (21:25)
== END 2025-01-11 21:41 | disposition home or self-care (01) ==
LOC: ED 20:13
PROVIDERS: Internal Medicine
DX: N39.0 Urinary tract infection, site not specified (principal); E66.9 Obesity, unspecified; Z20.2 Contact with and (suspected) exposure to infections with a predominantly sexual mode of transmission; Z90.721 Acquired absence of ovaries, unilateral; Z90.89 Acquired absence of other organs

== ENCOUNTER 2025-03-17 08:24 | Emergency (ER) | payer OTHER ==
[~2025-03-17 08:24] MED LIST changes: +CIPRO500 MG PO
[2025-03-17 08:35] VITALS: BP 157/87
[2025-03-17] MEDS ORDERED: SODIUM CHLORIDE 0.9% 500 ML IV ONE (08:45)
[2025-03-17] MEDS ORDERED: Ondansetron Hydrochloride 4 MG/2 ML VIAL IV ONE (08:45)
[2025-03-17 09:38] LABS: BASO # 0.0 10*3/uL (0.0-0.1); BASO % 0.1 % (0.0-1.0); EOS # 0.1 10*3/uL (0.0-0.4); EOS % 1.7 % (1.0-4.0); MEAN CELL VOLUME 94.3 fl (81.0-99.0); MEAN CORPUSCULAR HGB 31.2 pg (27.0-31.0); MEAN PLATELET VOLUME 8.6 fl (9.6-12.3); MONO # 0.6 10*3/uL (0.1-1.0); MONO % 7.8 % (3.0-9.0); NEUT # 5.0 10*3/uL (2.3-7.9); NEUT % 66.2 % (47.0-73.0); NUCLEATED RED BLOOD CELL 0.0 % (0.0-0.0); NUCLEATED RED BLOOD CELL 0.0 10*3/uL (0.0-0.0); PLATELET COUNT AUTOMATED 313 10*3/uL (130-400); RED CELL DISTRI WIDTH 12.1 % (0-14.5)
[2025-03-17 10:05] LABS: BUN 7 mg/dl (9-23); SGPT/ALT 20 U/L (5-49)
[2025-03-17 10:06] LABS: BILIRUBIN Negative (Negative); BLOOD Negative (Negative); CLARITY Clear (Clear); COLOR Yellow (Yellow); KETONE Negative (Negative); LEUKO ESTERASE Trace (Negative); NITRITE Negative (Negative); PH 6.0 (4.5-8.0); SPECIFIC GRAVITY <= 1.005 (1.001-1.030); UROBILINOGEN 0.2 E.U./dl (0.0-1.0)
[2025-03-17 10:19] LABS: BACTERIA 1+; RBC 0-2 rbc/hpf (0-2)
[2025-03-17] MEDS ORDERED: Ondansetron4 MG PO (10:44)
[2025-03-17] MEDS ORDERED: PREDNISONE20 M1 PO (10:44)
[2025-03-17] MEDS ORDERED: NAPROSYN500 MG PO (10:44)
== END 2025-03-17 10:50 | disposition home or self-care (01) ==
LOC: ED 08:24
PROVIDERS: Emergency Medicine
DX: M94.0 Chondrocostal junction syndrome [Tietze] (principal); J06.9 Acute upper respiratory infection, unspecified; R11.2 Nausea with vomiting, unspecified; F17.200 Nicotine dependence, unspecified, uncomplicated; Z90.49 Acquired absence of other specified parts of digestive tract; Z90.89 Acquired absence of other organs; Z20.822 Contact with and (suspected) exposure to COVID-19